=== PATIENT | male | born 1960 | race Caucasian/White ===

== ENCOUNTER 2016-09-04 06:10 | Day surgery (SDC) | payer BC ==
[~2016-09-04 06:10] MED LIST: Buffered Lidocaine 0.9% SYRIN* 5 ML/SYR SYRINGE INTRADERM ONE; Buffered Lidocaine 0.9% SYRIN* 5 ML/SYR SYRINGE ONE
[2016-09-04] MEDS ORDERED: Lidocaine 1% INJ* 10 MG/ML 30 ML SDV ONE (06:56)
[2016-09-04] MEDS ORDERED: ceFAZolin 2 GM PREMIX(*) 2 GM/50 ML BAG IVPB ONE (07:21)
[2016-09-04] MEDS ORDERED: ceFAZolin 1 GM in Dextrose (*) 1 GM/50 ML BAG IVPB ONE (07:22)
[2016-09-04] MEDS ORDERED: Midazolam* 1 MG/ML 5 ML VIAL (5 MG) ONE (07:59)
[2016-09-04] MEDS ORDERED: fentaNYL* 50 MCG/ML 2 ML VIAL (100 MCG VIAL) ONE (07:59)
[2016-09-04] MEDS ORDERED: oxyCODONE/Acetamin 5/325 MG* TAB PO PRN (09:11)
--- NOTE | 2016-09-04 09:36 | RAD ---
INDICATION: chest port placement COMPARISONS: None relevant TECHNIQUE: Fluoroscopy was provided for a vascular access procedure. Total fluoroscopy time is: 16.3 seconds FINDINGS: Spot images demonstrate a right-sided chest port from an internal jugular approach with the tip in the superior cava. IMPRESSION: FLUOROSCOPY WAS PROVIDED FOR A VASCULAR ACCESS PROCEDURE CPT II Codes: 6045F
[2016-09-04 09:47] VITALS: BP 117/65
--- NOTE | 2016-09-04 09:56 | RAD ---
INDICATION: Line placement COMPARISON: None TECHNIQUE: An AP portable view obtained at 0922 hours is submitted. FINDINGS: Bones/Soft Tissues: There are no acute bony findings. There is a right-sided central venous catheter terminating in the superior vena cava. Cardiomediastinal: The cardiomediastinal silhouette is normal. Lungs: There are no infiltrates. There is no pneumothorax. Pleura: There are no pleural effusions. Other: None IMPRESSION: RIGHT-SIDED CENTRAL VENOUS CATHETER. NO PNEUMOTHORAX.
--- NOTE | 2016-09-05 13:33 | OP ---
CC: Ulises Encarnacion MD * DATE OF OPERATION: 09/04/16 - [facility] DATE OF : 64 SURGEON: Bakari Cyr MD CLAIM PROFESSIONAL: None. ANESTHESIOLOGIST: Dr. Ambrocio. ANESTHESIA: Local MAC PRE-OP DIAGNOSIS: Rectal carcinoma. POST-OP DIAGNOSIS: Rectal carcinoma. OPERATIVE PROCEDURE: Right internal jugular power-port placement. ESTIMATED BLOOD LOSS: 10 mL. IV FLUIDS: Crystalloids. SPECIMENS: None. DRAINS: None. COMPLICATIONS: None. COUNTS: Instrument, needle, and sponge counts were correct. DESCRIPTION OF PROCEDURE: The patient was brought to the operating room and placed on the table supine. Sequential compression devices were placed on both lower extremities. Intravenous sedation was administered. Chest and neck were prepped and draped in the usual sterile fashion. Time-out was performed. Local anesthetic was infiltrated into the skin and subcutaneous tissue for a right subclavian approach. The vein was cannulated after the third pass with the needle and a guidewire was placed without difficulty in its position, confirmed into superior vena cava. However, there was noted to be a hematoma forming in the subclavian space and therefore wire was removed and direct pressure was applied until the swelling resolved. Subsequently it was decided to place a right IJ catheter and this was performed using ultrasound guidance accessing the right internal jugular vein without difficulty and then passing the guidewire. Additional anesthetic was infiltrated into the right upper chest and a transverse incision was made to create the subcutaneous pocket. The pocket was created with the use of cautery. Next an 8-Faroese PowerPort was tunneled through the guidewire insertion site and then the peel-away sheath and dilator were advanced over the guidewire into the superior vena cava under fluoroscopic guidance. The catheter was advanced into the superior vena cava and the position confirmed on the fluoroscopy. The catheter was cut to an appropriate length and connected to the power port which was placed into the subcutaneous pocket. It was secured there with a single 2-0 Surgipro suture. The port was accessed, withdrawn, and flushed easily. The pocket was then closed with a 3-0 Polysorb for the subcutaneous tissues and 4-0 Monocryl for the skin. insertion site was also closed in the same fashion. Steri- Strips and dressings were applied. The port was reaccessed and flushed with heparinized saline prior to the conclusion of the procedure. The patient tolerated the procedure well and was transferred to the recovery stable. [id number]/[facility] #: [id number] MTDJustin
== END 2016-09-04 09:47 | disposition home or self-care (01) ==
LOC: OR 06:10
PROVIDERS: ATTEND Surgery
DX: C20 Malignant neoplasm of rectum (principal); E11.40 Type 2 diabetes mellitus with diabetic neuropathy, unspecified; G47.33 Obstructive sleep apnea (adult) (pediatric); I10 Essential (primary) hypertension; E66.01 Morbid (severe) obesity due to excess calories; E78.00 Pure hypercholesterolemia, unspecified; Z79.84 Long term (current) use of oral hypoglycemic drugs; Z87.891 Personal history of nicotine dependence; Z68.38 Body mass index [BMI] 38.0-38.9, adult
CPT/HCPCS: 71010; 76000; C1788; J0690; J1642; J2001; J2250; J3010

== ENCOUNTER 2018-11-11 06:55 | Day surgery (SDC) | payer BC ==
--- NOTE | 2018-11-06 09:08 | HP ---
AMENDED REPORT NOW INCLUDES DESIGNATED COSIGNER PREOPERATIVE HISTORY AND PHYSICAL: DATE OF ADMISSION/SURGERY: 11/11/18 DATE OF OFFICE VISIT/ENCOUNTER: 10/16/18 ATTENDING SURGEON: Marina Henry MD.* (DICTATED BY LEONCIO SANDRA) HAT BRUSHER MACHINE: Dr. Bryant. PROCEDURES: Left wrist carpal tunnel release, ulnar nerve decompression at left elbow. 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 He has had nerve conduction studies which showed an ulnar nerve compression at the left elbow and bilateral carpal tunnel syndrome, moderate in nature. He is a diabetic. There was no injury. His symptoms have progressively gotten worse over time and the numbness has become quite constant. He has consented to proceed with surgical intervention for his left upper extremity at this time in the form of a left wrist carpal tunnel release and an ulnar nerve decompression at the elbow. PAST MEDICAL HISTORY: 1. Hypertension. 2. Diabetes. 3. Sleep apnea, with CPAP. 4. Hypercholesterolemia. 5. Peripheral neuropathy. 6. History of colorectal cancer with chemotherapy. PAST SURGICAL HISTORY: 1. Hernia repair. 2. Port placement for chemotherapy. CURRENT MEDICATIONS: 1. Alfuzosin HCl ER 10 mg daily. 2. Amlodipine besylate 5 mg daily. 3. Duloxetine HCl 30 mg daily. 4. Gabapentin 300 mg 2 tabs 3 times a day. 5. L-methylfolate/herbal supplement 1 tablet twice a day. 6. Lisinopril 40 mg 2 tabs daily. 7. Simvastatin 40 mg daily. 8. Trulicity 1.5 mg/0.5 mL inject 1 dose daily. 9. Tylenol 325 mg 2 tabs q.4 hours p.r.n. for pain. ALLERGIES: No known drug allergies. FAMILY MEDICAL HISTORY: Diabetes, heart disease, hypertension, cancer. 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 He is a former smoker; he quit approximately 10 years ago. Prior to that, he smoked up to 3 packs per day for 35 years. He denies recreational drug use. He drinks alcohol on occasion. REVIEW OF SYSTEMS: Negative for general, cephalic, cardiovascular, respiratory , GI, , other musculoskeletal, integumentary, endocrine. Neurologic is positive for peripheral neuropathy. Negative hematologic symptoms. Infectious Disease: Negative for MRSA, hepatitis C, HIV. PHYSICAL EXAMINATION GENERAL: A well-developed, well-nourished 58-year-old male, in no acute distress. VITAL SIGNS: Height 5 feet 11 inches, weight 318 pounds. Pulse rate 78, blood pressure 140/78. HEENT: Normocephalic, atraumatic. Pupils are equal, round, and reactive to light and accommodation. Extraocular movements are intact. Throat is clear. NECK: Supple. No palpable lymph nodes. PULMONARY: Lungs are clear to auscultation bilaterally. No wheezes, rales, or rhonchi. CARDIOVASCULAR: Regular rate and rhythm. S1, S2. No murmurs, rubs, or gallops. No edema. ABDOMEN: Positive bowel sounds. Soft and nontender. NEUROLOGICAL: Alert and oriented x3. Cranial nerves II through XII are intact. MUSCULOSKELETAL: On exam of his left upper extremity, he has some mild thenar wasting and weakness with thumb abduction. He has good strength with finger abduction. Positive Tinel sign at the ulnar nerve at the left elbow and a positive Tinel sign at the median nerve at the wrist. He can flex and extend his fingers with no problem. IMAGING: Nerve conduction study/EMG shows bilateral carpal tunnel syndrome and an ulnar nerve compression at the left elbow. IMPRESSION: As above. PLAN: The patient is scheduled to undergo a left wrist carpal tunnel release and an ulnar nerve decompression at the left elbow with Dr. Henry on 11/11/18. He will return to the office 10 days postop for followup and suture removal. He plans on using [id number] ibuprofen and Tylenol for postoperative pain management. LEONCIO SANDRA [id number]/[facility] #: [id number] ARACELY
[~2018-11-11 06:55] MED LIST changes: -Buffered Lidocaine 0.9% SYRIN* 5 ML/SYR SYRINGE INTRADERM ONE; -Buffered Lidocaine 0.9% SYRIN* 5 ML/SYR SYRINGE ONE; +Buffered Lidocaine 1% SYRIN* 1 ML/SYRINGE INTRADERM ONE; +Dexamethasone IV* 4 MG/ML 1 ML (4 MG) IV SLOW PU ONE; +Famotidine IV* 10 MG/ML 2 ML (20 mg) IV ONE; +Lactated Ringers 1000 ML Bag* 1,000 ML IV SCH
[2018-11-11] MEDS ORDERED: Famotidine IV* 10 MG/ML 2 ML (20 mg) ONE (07:16)
[2018-11-11] MEDS ORDERED: Dexamethasone IV* 4 MG/ML 1 ML (4 MG) ONE (07:16)
[2018-11-11] MEDS ORDERED: ceFAZolin 2 GM in NS PREMIX(*) 2 GM/100 ML BAG IVPB ONE (07:17)
[2018-11-11] MEDS ORDERED: ceFAZolin VIAL(*) VIAL ONE (07:30)
[2018-11-11] MEDS ORDERED: KETAMINE HCL* 50 MG/ML 10 ML VIAL ONE (07:53)
[2018-11-11] MEDS ORDERED: Midazolam* 1 MG/ML 2 ML VIAL (2 MG) ONE (07:53)
[2018-11-11] MEDS ORDERED: fentaNYL* 50 MCG/ML 2 ML VIAL (100 MCG VIAL) ONE (07:53)
[2018-11-11] MEDS ORDERED: Lidocaine 1% INJ* 10 MG/ML 30 ML SDV ONE (08:11)
[2018-11-11] MEDS ORDERED: fentaNYL* 50 MCG/ML 2 ML VIAL (100 MCG VIAL) IV PRN (08:13)
[2018-11-11] MEDS ORDERED: HYDROcodone/ACETAMIN 5-325 MG* 1 TAB PO PRN (08:13)
[2018-11-11] MEDS ORDERED: Naloxone* 0.4 MG/ML 1 ML VIAL IV PRN (08:13)
[2018-11-11] MEDS ORDERED: oxyCODONE/Acetamin 5/325 MG* TAB PO PRN (08:13)
[2018-11-11] MEDS ORDERED: DiMENhydriNATE IV* 50 MG/ML VIAL IV PUSH PRN (08:13)
[2018-11-11] MEDS ORDERED: Bupivacaine 0.5% SDV PF* 30ML VIAL ONE (08:13)
[2018-11-11] MEDS ORDERED: Ketorolac INJ* 30 MG/ML 1 ML VIAL IV PRN (08:13)
[2018-11-11] MEDS ORDERED: Lidocaine 2% PF * 5 ML VIAL ONE (08:40)
[2018-11-11] MEDS ORDERED: Propofol* 10 MG/ML 20 ML BTL ONE (08:40)
[2018-11-11 09:37] VITALS: BP 129/72
--- NOTE | 2018-11-11 18:21 | OP ---
DATE OF OPERATION: 11/11/18 - [facility] DATE OF : 64 SURGEON: Marina Henry MD SUPPLY ASSISTANT: LEONCIO Fuentes ANESTHESIA: Local MAC. PRE-OP DIAGNOSES: Left carpal tunnel syndrome and ulnar nerve compression at the left elbow. POST-OP DIAGNOSES: Left carpal tunnel syndrome and ulnar nerve compression at the left elbow. OPERATIVE PROCEDURE: Left carpal tunnel release and ulnar nerve decompression at the elbow. ESTIMATED BLOOD LOSS: Zero. TOURNIQUET TIME: About 40 minutes. INDICATIONS FOR PROCEDURE: Levar is a 58-year-old man who has numbness and tingling in his left hand. He has ulnar nerve compression at the left elbow and carpal tunnel syndrome. He presents for left carpal tunnel release and ulnar nerve decompression at the elbow. DESCRIPTION OF PROCEDURE: The patient was brought to the operating room, was given a sedation anesthetic and a local infiltration of 10 cc of 1% plain lidocaine in the palm of the left hand and 10 cc of 0.5% Marcaine plain at the medial aspect of the left elbow. The skin of his left hand and forearm was prepped and draped in usual sterile fashion. The hand and forearm were exsanguinated and the tourniquet elevated to 250 mmHg. A longitudinal incision was made in the palm in line with the ring finger. We dissected through the subcutaneous tissue down to the transverse carpal ligament. The ligament was divided sharply with the knife and then more proximally with the scissors. The nerve was dissected free from the surrounding tissue, and there was an area of significant compression at the midportion of the ligament. The wound was irrigated and the skin edges were reapproximated with 4-0 nylon suture. Next, a curvilinear incision was made centered between the medial epicondyle and at the tip of the olecranon process. We dissected through the subcutaneous tissue down to the ulnar nerve proximal to the elbow joint. The nerve was completely released proximally. There were branches of the medial antebrachial cutaneous nerve that were preserved. The nerve was released through the cubital tunnel and then into the FCU fashion both superficially and deep. The wound was irrigated. There was most compression of the nerve at the cubital tunnel. The subcutaneous tissue was closed with 2-0 Vicryl suture and the skin with skin xenia. The wounds were dressed with Xeroform, 4x4, Webril, and an Matthew wrap. The patient tolerated the procedure well and was brought to the recovery room in good condition. [id number]/[facility] #: [id number] ARACELY
== END 2018-11-11 09:59 | disposition home or self-care (01) ==
LOC: OREAST 06:55
PROVIDERS: ATTEND Orthopaedic Surgery
DX: G56.02 Carpal tunnel syndrome, left upper limb (principal); G56.22 Lesion of ulnar nerve, left upper limb; I10 Essential (primary) hypertension; E11.9 Type 2 diabetes mellitus without complications; Z79.84 Long term (current) use of oral hypoglycemic drugs; G47.33 Obstructive sleep apnea (adult) (pediatric); G62.9 Polyneuropathy, unspecified; Z85.038 Personal history of other malignant neoplasm of large intestine
CPT/HCPCS: J0690; J1100; J2250; J2704; J3010; J3490